=== PATIENT | female | born 1965 | race Two or more races ===

== ENCOUNTER 2021-03-12 15:04 | Outpatient (REF) | payer OTHER, SELFPAY ==
[2021-03-12 15:44] LABS: Hematocrit 36.1 % (37-47); Hemoglobin 12.4 g/dl (12.0-16.0); Mean Corpuscular HGB Conc 34.3 g/dl (31.0-35.0); Mean Corpuscular Hemoglobin 29.4 pg (27.0-33.0); Mean Corpuscular Volume 85.5 fL (80-98); Mean Platelet Volume 10.2 fL (9.4-12.3); Platelet Count 173 X10*3/uL (160-400); Red Blood Count 4.22 X10*6/uL (4.20-5.50); Red Cell Distribution Width 12.3 % (11.0-16.0); White Blood Count 6.5 X10*3/uL (4.8-10.8)
[2021-03-12 16:32] LABS: Alanine Aminotransferase 13 U/L (0-31); Albumin Level 4.2 g/dL (3.5-5.0); Alkaline Phosphatase 64 U/L (39-117); Anion Gap 11 (12-20); Aspartate Amino Transferase 13 U/L (5-31); Bilirubin Direct < 0.2 mg/dL (0.0-0.5); Bilirubin Total 0.2 mg/dL (0.0-1.0); Blood Urea Nitrogen 16 mg/dL (9-16); Calcium 9.3 mg/dL (8.4-10.2); Carbon Dioxide 29 mmol/L (22-29); Chloride 104 mmol/L (96-108); Estimated Glomerular Filt Rate 56; Glucose Random 118 mg/dL (60-115); Potassium 4.2 mmol/L (3.3-5.1); Sodium 140 mmol/L (135-145); Total Protein 6.9 g/dL (6.5-8.0)
[2021-03-12 16:49] LABS: Erythrocyte Sedimentation Rate 7 MM/HR (0-20)
[2021-03-13 06:21] LABS: Lyme Abs Screen <0.90 index
[2021-03-13 08:26] LABS: HIV AB/AG Nonreactive (Nonreactive); HIV Num 1 0.11 S/CO (0.00-0.99)
[2021-03-13 09:28] LABS: Syphilis Screen Nonreactive (Nonreactive)
[2021-03-13 13:37] LABS: Anti Nuclear Antibody Screen NEGATIVE (NEGATIVE)
== END 2021-03-12 15:05 | disposition home or self-care (01) ==
LOC: HO.LAB 15:04
PROVIDERS: Visit Provider Psychiatry & Neurology Neurology
DX: G93.40 Encephalopathy, unspecified (principal)
CPT/HCPCS: 36415; 80048; 80076; 85027; 85652; 86038; 86039; 86617; 86618; 86780; 87389

== ENCOUNTER 2021-03-20 14:47 | Outpatient (REF) | payer OTHER, SELFPAY ==
--- NOTE | ~2021-03-20 | MR_ITS ---
MRI OF THE BRAIN WITH AND WITHOUT IV CONTRAST INDICATION: Encephalopathy. COMPARISON: None. TECHNIQUE: Multiplanar multisequence MR imaging of the brain was obtained without and following the administration of 6 mL of Gadavist without complication. FINDINGS: There is no pathologic intracranial enhancement. Moderate T2 signal changes scattered throughout the supratentorial white matter in a nonspecific distribution. There is no hydrocephalus, extra-axial surface collection, or herniation. The major flow voids at the skull base are preserved. There is no acute infarct on diffusion-weighted imaging. There is no intracranial hemorrhage on the gradient recalled echo acquisition. The midline structures are normal. The cerebellar tonsils are normally positioned. The cerebellum and brainstem are normal. The craniocervical junction is normal. Osseous marrow signal intensity is homogenous. The visualized soft tissues are unremarkable. Left greater than right maxillary retention cysts and moderate mucosal thickening within the ethmoid air cells bilaterally. MR/MR head/brain wo/w con IMPRESSION: - Moderate T2 signal changes scattered throughout the supratentorial white matter in a nonspecific distribution. - Left greater than right maxillary retention cysts and moderate mucosal thickening within the ethmoid air cells bilaterally.
== END 2021-03-20 14:48 | disposition home or self-care (01) ==
LOC: HO.MRI 14:47
PROVIDERS: Visit Provider Psychiatry & Neurology Neurology
DX: G93.40 Encephalopathy, unspecified (principal)
CPT/HCPCS: 70553; A9585